=== PATIENT | male | born 1990 | race Caucasian/White ===

== ENCOUNTER 2018-01-01 12:46 | Outpatient (CLI) | payer BC ==
--- NOTE | 2018-01-01 15:02 | RAD ---
LUMBAR SPINE MINIMUM 4 VIEWS: Date: 01/01/18 HISTORY: M51.36 lumbar disc degeneration. COMPARISON: None. FINDINGS: There is no acute fracture. No malalignment. There is narrowing of the L5-S1 disc space. No listhesis with flexion or extension. IMPRESSION: Moderate degenerative disease L5-S1. POS: [facility]
--- NOTE | 2018-01-01 15:16 | MRI ---
MRI LUMBAR SPINE WITHOUT CONTRAST: Date: 01/01/18 HISTORY: Lumbar disc degeneration. COMPARISON: None. TECHNIQUE: MRI lumbar spine is performed without intravenous Gadolinium administration. Multisequential, multipl dexter imaging is performed. FINDINGS: Appropriate T1 marrow signal intensity of the lumbar vertebra. Lumbar spine vertebral body height is maintained. No fracture. No significant STIR hyperintensity to suggest vertebral body edema or ligame ntous injury. There are Type I and Type II Modic changes at L5-S1. Symmetric signal intensity of the psoas muscle. Appropriate signal intensity of the visualized solid organs. Conus medullaris terminates at the upper aspect of L1. T12-L1: Adequate disc hydration. No significant central canal stenosis. Foramina are patent. L1-L2: Adequate disc hydration. No significant central canal stenosis. Foramina are patent. L2-L3: Adequate disc hydration. No significant central canal stenosis. Foramina are patent. L3-L4: Adequate disc hydration. No significant central canal stenosis. Foramina are patent. L4-L5: Adequate disc hydration. No significant central canal stenosis. Foramina are patent. L5-S1: There is a generalized disc bulge with a right subarticular component. Mild narrowing of the right mayer barticular zone with partial obscuration of the traversing right S1 nerve root. There appears to be a small associated annular fissure. Minimal stenosis of the thecal sac. Moderate right and left forami nal narrowing. IMPRESSION: Degenerative changes at L5-S1. POS: [facility]
== END 2018-01-01 12:47 | disposition home or self-care (01) ==
LOC: TBSIIMAG 12:46
PROVIDERS: ATTEND Neurological Surgery
DX: M51.36 Other intervertebral disc degeneration, lumbar region (principal); M51.37 Other intervertebral disc degeneration, lumbosacral region; M47.897 Other spondylosis, lumbosacral region
CPT/HCPCS: 72110; 72148

== ENCOUNTER 2018-02-25 08:25 | Outpatient (CLI) | payer BC ==
[2018-02-25 09:54] LABS: Hemoglobin 15.1 g/dL (14.0-18.0); Mean Corpuscular HGB CONC 34.7 g/dL (32.0-36.0); Mean Corpuscular Hemoglobin 29.7 pg (27.0-31.0); Mean Corpuscular Volume 85.5 fL (78.0-98.0); Mean Platelet Volume 6.8 fL (7.4-10.4); Platelet Count 276 thou/uL (130-400); RBC Distribution Width 11.6 % (11.5-14.5); Red Blood Cell (RBC) Count 5.08 mill/uL (4.70-6.10); White Blood Cell (WBC) Count 6.1 thou/uL (4.8-10.8)
[2018-02-25 10:05] LABS: Anion Gap 12 mmol/L (10-20); BUN (Urea Nitrogen) 14 mg/dL (8.9-20.6); Calc. Creatinine Clearance 0 mL/min (70-130); Calcium 9.7 mg/dL (7.8-10.44); Carbon Dioxide 30 mmol/L (22-29); Chloride 104 mmol/L (98-107); Estimated GFR-MDRD 68; Glucose 87 mg/dL (70-105); Sodium 142 mmol/L (136-145)
--- NOTE | 2018-02-25 13:16 | EKG ---
Test Reason : Blood Pressure : / mmHG Vent. Rate : 075 BPM Atrial Rate : 075 BPM P-R Int : 132 ms QRS Dur : 086 ms QT Int : 338 ms P-R-T Axes : 062 082 028 degrees QTc Int : 377 ms Normal sinus rhythm Normal ECG No previous ECGs available Confirmed by BRANDIN MCCRACKEN, DR. Garza ([id number]) on 02/25/2018 1:15:42 PM Referred By: GRACIELA Confirmed By:DR. Greg GHOTRA MD
== END 2018-02-25 08:26 | disposition home or self-care (01) ==
LOC: LABBT 08:25
PROVIDERS: ATTEND Neurological Surgery
DX: Z01.818 Encounter for other preprocedural examination (principal); M51.36 Other intervertebral disc degeneration, lumbar region
CPT/HCPCS: 80048; 85027; 93005; 93010